=== PATIENT | male | born 1985 | race Caucasian/White ===

== ENCOUNTER 2018-03-14 10:46 | Emergency (ER) | payer SELFPAY ==
[~2018-03-14 10:46] MED LIST: CIPR-9 PO; PERC7.5T13 PO; PROM25TA10 PO
[2018-03-14 10:49] VITALS: BP 140/63; PULSE 70; RESP 20; TEMP 98.6; O2SAT 98
[2018-03-14] MEDS ORDERED: LEVA750T9 PO (11:24)
[2018-03-14] MEDS ORDERED: TAMS5CAP PO (11:24)
[2018-03-14] MEDS ORDERED: IBUP1TAB7 PO (11:24)
--- NOTE | 2018-03-14 11:26 | PD ---
HPI Chief Complaint: Flank/Kidney Pain Time Seen by Provider: 10:54 Travel History International Travel<30 days: No Contact w/Intl Traveler<30days: No Traveled to known affect area: No History of Present Illness HPI 32-year-old male presents to the emergency department with complaint of continued difficulty urinating 1 week. He has history of right ureteral stent placement about 6-8 months ago with continued infections. History of kidney stones. He was seen at [facility] on March 12 and was sent home with prescriptions for Percocet, Phenergan, and Cipro, which she has been taking as prescribed. He was also told to call Dr. Coronel's office and make an appointment for follow-up, which she did and says he was given the run around and told he needed patient's assistance to be seen in the office. He last urinated last night. He said it is very painful to urinate. Denies fever, vomiting. Reports pain to right flank and left lower back. Rates pain 7/10. Has been taking the Percocet for pain with some relief. Symptoms are aggravated with urination. No primary care provider. No known allergies. History of kidney stones. Denies other significant past medical history. Has no other medical complaints. No other modifying factors or associated signs and symptoms. PFSH Past Medical History Diminished Hearing: No Kidney Stones: Yes Tetanus Vaccination: Unknown Influenza Vaccination: No ?: Not Past Surgical History Genitourinary Surgery: Yes (RIGHT RENAL STENT) Social History Alcohol Use: No Tobacco Use: Yes (1) Substance Use: No (HX OF IV DRUG USE) Allergies-Medications (Allergen,Severity, Reaction): Coded Allergies: No Known Drug Allergies (Verified Allergy, Unknown, 03/12/18) Reported Meds & Prescriptions Reported Meds & Active Scripts Active Ibuprofen 800 Mg Tab 800 Mg PO Q6HR PRN Flomax (Tamsulosin HCl) 0.4 Mg Cap 0.4 Mg PO HS 7 Days Levaquin (Levofloxacin) 750 Mg Tablet 750 Mg PO DAILY 7 Days Percocet (Oxycodone-Acetaminophen) 7.5-325 mg Tab 1 Tab PO Q6H PRN Phenergan (Promethazine HCl) 25 Mg Tablet 25 Mg PO Q6H PRN Cipro (Ciprofloxacin HCl) 500 Mg Tab 500 Mg PO BID 10 Days Review of Systems Except as stated in HPI: all other systems reviewed are Neg Physical Exam Narrative GENERAL: Well-nourished, well-developed male patient, in no acute distress SKIN: Warm and dry. No rash. HEAD: Atraumatic. Normocephalic. EYES: Pupils equal and round. No scleral icterus. No injection or drainage. ENT: Mucosa pink and moist. NECK: Trachea midline. CARDIOVASCULAR: Regular rate and rhythm. No murmur appreciated. RESPIRATORY: No accessory muscle use. Clear to auscultation. Breath sounds equal bilaterally. GASTROINTESTINAL: Abdomen soft, non-tender, nondistended. Hepatic and splenic margins not palpable. Bowel sounds are active 4 quadrants. Bladder tender and distended. MUSCULOSKELETAL: No obvious deformities. No clubbing. No cyanosis. No edema. BACK: Right CVA tenderness NEUROLOGICAL: Awake and alert. Oriented 3. No obvious cranial nerve deficits. Motor grossly within normal limits. Normal speech. Moves all extremities. 5/5 strength to all extremities. PSYCHIATRIC: Appropriate mood and affect; insight and judgment normal. Data Data Last Documented VS Vital Signs Date Time Temp Pulse Resp B/P (MAP) Pulse Ox O2 Delivery O2 Flow Rate FiO2 03/14/18 10:49 98.6 70 20 140/63 (88) 98 Orders Orders Ed Discharge Order (03/14/18 11:26) Mandatory Outpatient Referral (03/14/18 11:26) [facility] Medical Decision Making Medical Screen Exam Complete: Yes Emergency Medical Condition: Yes Medical Record Reviewed: Yes Differential Diagnosis Dysuria, UTI, kidney stones, bladder stones Narrative Course This is a 32-year-old male who was seen on March 12 and [facility] for difficulty urinating, kidney stones, bladder stones. He was given Percocet, Phenergan, ciprofloxacin prescriptions for home which she has been taking. He tried calling Dr. Napoles, urologist, office for follow-up and was told he needed patient's assistance to be seen in the office. Patient has history of right ureteral stent placement 6-8 months ago at [facility] and the urologist will apparently not remove the stents for him. Patient was able to provide a urine sample and urinate in the ER. I reviewed patient's medical records from March 12 and urine culture is growing out staph SP coagulase. I called the microbiology lab to verify susceptibility of ciprofloxacin and was told levofloxacin is 87 percent susceptible to this organism, but the urine culture will not finalized until tomorrow. CT abdomen/pelvis from March 12 concluded : 1. Large bladder calculus measuring up to 4.8 cm. Multiple calculi lower pole right kidney. There is a 5 mm calculus adjacent to the distal right ureteral stent. Multiple loops present within the right ureteral stent as described above. The right ureteral stent lies below the level of the right renal pelvis. I discussed all findings from March 12 with my attending physician, Dr. Gao, and she agrees with my plan of care and discharge; she also recommends changing the prescription to levofloxacin, from ciprofloxacin. Ciprofloxacin, ibuprofen, Flomax prescribed home. Mandatory outpatient referral for urologist ordered. Instructed patient to follow-up with urologist. Instructed patient to stop Cipro and start levofloxacin. Instructed patient to follow up with primary care provider. Patient verbalizes understanding and agreement with treatment plan. Patient is medically cleared and stable for discharge. Discussed reasons to return to the emergency department. Patient agrees with treatment plan. The patients vital signs are stable and the patient is stable for outpatient follow-up and treatment. Patient discharged home, stable and in no acute distress. Diagnosis Primary Impression: Difficulty urinating Referrals: Jay Coronel MD [facility] Primary Care Physician Urologist Patient Instructions: Bladder Stones (ED), Dysuria (ED), General Instructions, Kidney Stones (ED) Additional Instructions: Stop taking ciprofloxacin; start taking levofloxacin Ibuprofen as needed and as directed to reduce pain Flomax as prescribed Strain urine Drink plenty of fluids Follow-up with urologist; a mandatory referral has been ordered and you will be called to schedule an appointment Follow-up with primary care provider Return to the emergency department immediately with worsening of symptoms Med/Other Pt SpecificInfo: Prescription(s) given Scripts Ibuprofen (Ibuprofen) 800 Mg Tab 800 MG PO Q6HR Y for PAIN, #30 TAB 0 Refills Prov: Traci Arthur [employer]ETRY[employer] NITRATOR OPERATOR 03/14/18 Tamsulosin (Flomax) 0.4 Mg Cap 0.4 MG PO HS for Manage Prostate Problems for 7 Days, #30 CAP 0 Refills Prov: Traci Arthur TETRYL NITRATOR OPERATOR 03/14/18 Levofloxacin (Levaquin) 750 Mg Tablet 750 MG PO DAILY for Infection for 7 Days, #7 TAB 0 Refills Prov: Traci Arthur 03/14/18 Disposition: 01 DISCHARGE HOME Condition: Stable Traci Arthur March 14, 2018 11:26
== END 2018-03-14 11:47 | disposition home or self-care (01) ==
LOC: NEPD 10:46
DX: N21.0 Calculus in bladder (principal); N20.0 Calculus of kidney
CPT/HCPCS: 99283